=== PATIENT | male | born 1980 | race African-American/Black ===

== ENCOUNTER 2018-05-13 03:24 | Emergency (ER) | payer OTHER ==
[2018-05-13] MEDS ORDERED: AMOXIC-POT CLAV 875MG STARTER 2 EACH TABLET PO STA (08:04)
[2018-05-13] MEDS ORDERED: AMOXIC-POT CLAV 875-125MG 1 EACH TAB PO STA (08:04)
[2018-05-13] MEDS ORDERED: DEXAMETHASONE 4 MG TAB PO STA (08:04)
--- NOTE | 2018-05-13 08:07 | ED ---
Eye Problem HPI - General Stated complaint: ENT Time Seen by Provider: 05/13/18 07:51 - History of Present Illness Initial comments: This is a 27-year-old male to the ER for evaluation presents today for evaluation regards to I pain left eye pain erythema and drainage. Patient states he just released from incarceration and has had symptoms increasing for the last 5 days. Denies fever denies headache denies loss or change in vision, does admit to mild blurry vision when his eyes having drainage. No other significant complaints chief complaint: eye pain ((), eye redness (Left) -: days(s) (3) Onset Description: gradual Location: left eye Place: other (Alf) If Injury: none Eye Symptoms: burning, redness, decreased vision Severity: mild Severity scale (1-10): 3 If Pain, Quality: burning Consistency: constant Context: recent uri Associated Symptoms: none Treatments Prior to Arrival: none - Related Data Home Medications Medication Instructions Recorded Confirmed No Known Home Medications 05/13/18 05/13/18 Allergies Allergy/AdvReac Type Severity Reaction Status Date / Time No Known Allergies Allergy Verified 05/13/18 07:50 Review of Systems ROS Statement: Those systems with pertinent positive or pertinent negative responses have been documented in the HPI. ROS Other: All systems not noted in ROS Statement are negative. Past Medical History Past Medical History: No Reported History History of Any Multi-Drug Resistant Organisms: None Reported Additional Past Surgical History / Comment(s): head, right wrist Past Psychological History: No Psychological Hx Reported Smoking Status: Never smoker Past Alcohol Use History: Occasional Past Drug Use History: Marijuana General Exam General appearance: alert, in no apparent distress Head exam: Present: atraumatic, normocephalic, normal inspection Eye exam: Present: normal appearance, PERRL, EOMI, other (Patient does have left eye conjunctivitis and mild drainage). Absent: scleral icterus, conjunctival injection, periorbital swelling ENT exam: Present: normal exam, mucous membranes moist Neck exam: Present: normal inspection. Absent: tenderness, meningismus, lymphadenopathy Respiratory exam: Present: normal lung sounds bilaterally. Absent: respiratory distress, wheezes, rales, rhonchi, stridor Cardiovascular Exam: Present: regular rate, normal rhythm, normal heart sounds. Absent: systolic murmur, diastolic murmur, rubs, gallop, clicks GI/Abdominal exam: Present: soft, normal bowel sounds. Absent: distended, tenderness, guarding, rebound, rigid Extremities exam: Present: normal inspection, full ROM, normal capillary refill. Absent: tenderness, pedal edema, joint swelling, calf tenderness Back exam: Present: normal inspection Neurological exam: Present: alert, oriented X3, CN II-XII intact Psychiatric exam: Present: normal affect, normal mood Skin exam: Present: warm, dry, intact, normal color. Absent: rash Course Vital Signs 05/13/18 08:25 Temperature 98 F Pulse Rate 76 Respiratory 18 Rate Blood Pressure 136/77 O2 Sat by Pulse 99 Oximetry Medical Decision Making - Medical Decision Making 37 male the ER for evaluation left eye conjunctivitis. Patient placed on antibiotic eyedrops and can be discharged home Disposition Clinical Impression: Conjunctivitis, left eye Disposition: HOME SELF-CARE Condition: Good Instructions: Conjunctivitis (ED) Is patient prescribed a controlled substance at d/c from ED?: No Referrals: None,Stated [Primary Care Provider] - 1-2 days
[2018-05-13] MEDS: POLYMYXIN B-TRIMETHOPRIM SULF (10,000-1) OPHTH DROPS 10 ML BTL LEFT EYE STA ×3 (08:22→08:23)
[2018-05-13 08:26] VITALS: BP 136/77; PULSE 76; RESP 18; TEMP 98
== END 2018-05-13 08:26 | disposition home or self-care (01) ==
LOC: EC 03:24
DX: H10.9 Unspecified conjunctivitis (principal); Z98.890 Other specified postprocedural states
CPT/HCPCS: 99283; J8540